=== PATIENT | male | born 1960 | race African-American/Black ===

== ENCOUNTER 2017-04-11 13:21 | Inpatient (IN) | payer MEDICAID ==
[~2017-04-11] VITALS: Ht 172.7 cm; Wt 68.0 kg
[2017-04-11] VITALS (7 sets, daily range): BP systolic 72–104; BP diastolic 45–68
[2017-04-11] MEDS ORDERED: Lidocaine 1% Plain 30 ml INJ ONE (13:30)
[2017-04-11] MEDS ORDERED: Tetanus/Diptheria/Pertussis Vaccine 0.5ml Syr IM ONE (13:30)
[2017-04-11] MEDS ORDERED: Bacitracin Oint UD TOPIC ONE (13:30)
[2017-04-11] MEDS ORDERED: IBUPROFEN600 MG ORAL (14:46)
[2017-04-11] MEDS ORDERED: CEPHALEXIN500 MG ORAL (14:46)
[2017-04-11 17:17] LABS: BASOPHILS % (AUTO) 1.3 % (0.0-2.0); EOSINOPHILS % (AUTO) 0.3 % (0.0-3.0); MEAN CORPUSCULAR HEMOGLOBIN 34.1 PG (27.0-31.0); MEAN CORPUSCULAR HGB CONC 33.3 G/DL (32.0-36.0); MEAN CORPUSCULAR VOLUME 102 FL (80-99); MEAN PLATELET VOLUME 8.6 FL (6.5-10.1); NEUTROPHILS % (AUTO) 70.4 % (45.0-75.0); PLATELET COUNT 287 K/UL (150-450); RED BLOOD COUNT 3.42 M/UL (4.70-6.10); RED CELL DISTRIBUTION WIDTH 13.4 % (11.6-14.8); WHITE BLOOD COUNT 11.4 K/UL (4.8-10.8)
[2017-04-11 17:40] LABS: TROPONIN I < 0.30 ng/mL (<=0.30)
[2017-04-11 17:43] LABS: ALBUMIN/GLOBULIN RATIO 1.8 (1.0-2.7); CALCIUM 8.9 mg/dL (8.6-10.2); GLOMERULAR FILTRATION RATE 41.8 mL/min (>60); POTASSIUM 4.1 mEQ/L (3.4-4.9); TOTAL PROTEIN 6.6 g/dL (6.6-8.7)
[2017-04-11 17:52] LABS: CKMB 3.9 ng/mL (< 6.7)
--- NOTE | 2017-04-11 18:00 | Emergency Room Report ---
History of Present Illness General Chief Complaint: Laceration Source: Patient, EMS Present Illness HPI The patient is a 56-year-old male but in by ambulance for a laceration to the right wrist. The patient states that he was cleaning his house, tripped, and fell into his window. He noticed immediate pain and bleeding the right wrist. And is described as an 8/10 dull ache and does not radiate. Worse with touch. He denies any other symptoms including nausea, vomiting, fever, chills, numbness or tingling, dizziness Allergies: Coded Allergies: No Known Allergies (Unverified , 04/11/17) Patient History Past Medical History: see triage record Pertinent Family History: none Reviewed Nursing Documentation: PMH: Agreed, PSxH: Agreed Nursing Documentation-PMH Hx Cardiac Problems: Yes - CHF Hx Hypertension: Yes - HIV Review of Systems All Other Systems: negative except mentioned in HPI Physical Exam Vital Signs Date Time Temp Pulse Resp B/P Pulse Ox O2 Delivery O2 Flow Rate FiO2 04/11/17 13:18 98.8 80 16 100/70 98 04/11/17 13:51 Room Air Sp02 EP Interpretation: reviewed, normal General Appearance: no apparent distress, alert, GCS 15, non-toxic Head: normocephalic, atraumatic Eyes: bilateral eye PERRL, bilateral eye normal inspection ENT: hearing grossly normal, normal pharynx, no angioedema, normal voice Neck: full range of motion, no bony tend, supple/symm/no masses Respiratory: chest non-tender, lungs clear, normal breath sounds, no wheezing, speaking full sentences Cardiovascular #1: no edema, no JVD, no murmur, no rub Gastrointestinal: normal bowel sounds, non tender, soft, non-distended, no guarding, no rebound Genitourinary: normal inspection, no CVA tenderness Musculoskeletal: back normal, gait/station normal, normal range of motion, tender - R wrist over the laceration Neurologic: alert, oriented x3, responsive, motor strength/tone normal, sensory intact, speech normal Psychiatric: judgement/insight normal, memory normal, mood/affect normal, no suicidal/homicidal ideation Skin: normal color, no rash, warm/dry, well hydrated Lymphatic: no adenopathy Procedures Laceration/Wound Repair Laceration/Wound Repair : Consent: Verbal Wound Location: upper extremity Wound's Depth, Shape: linear Wound Length (cm): 6 Wound Explored: clean Irrigated w/ Saline (ccs): 250 Betadine Prep?: Yes Anesthesia: 1% Lidocaine Volume Anesthetic (ccs): 6 Wound Debrided: minimal Wound Repaired With: sutures Suture Size/Type: 4:0, proline Number of Sutures: 6 Layer Closure?: No Sterile Dressing Applied?: Yes Splint Applied?: No Sling Applied?: No Patient Tolerated: Well Complications: None Medical Decision Making PA Attestation Dr. Lawson is my supervising physician. Patient management was discussed with my supervising physician Diagnostic Impression: Primary Impression: Hypotension Additional Impressions: Laceration Dehydration SULEIMAN (acute kidney injury) Bradycardia ER Course The patient is a 56-year-old male but in by ambulance for a laceration to the right wrist Ddx considered include but not limited to sprain/strain, fracture, contusion PE: vitals WNL. NAD. There is a 6 cm linear laceration of the anterior right wrist. Minimal active bleeding. Full active range of motion of the wrist. Sensation is intact. X-ray of the wrist is unremarkable. No foreign body. The wound was irrigated with normal saline and cleaned with betadine. A 27g needle was used to administer 6 mL of lidocaine without epi for local anasthesia. 6 sutures were placed with 4-0 proline. The wound was well approximated and the patient tolerated the procedure well. The wound was then cleaned and bacitracin was applied. Upon discharge, the patient's vitals have stabilized. He is now tachycardic and hypotensive. He states that he feels fatigued. IV access is established and the patient is given a bolus of fluids. Extensive workup will begin as the patient has a history of heart failure and HIV among others CBC shows leukocytosis and mild anemia. CMP consistent with acute kidney injury with elevated BUN and creatinine. Urinalysis unremarkable. urine drug screen shows cocaine and marijuana Cardiac markers essentially negative EKG and CXR shows no acute findings. The patient will be admitted in stable condition. This case was discussed between Dr. Lawson and admitting physician. The patient agrees with this plan. He has received 2 L of normal saline and vitals have improved. He feels better Laboratory Tests Test 04/11/17 16:50 04/11/17 18:00 White Blood Count 11.4 K/UL (4.8-10.8) H Red Blood Count 3.42 M/UL (4.70-6.10) L Hemoglobin 11.7 G/DL (14.2-18.0) L Hematocrit 35.0 % (42.0-52.0) L Mean Corpuscular Volume 102 FL (80-99) H Mean Corpuscular Hemoglobin 34.1 PG (27.0-31.0) H Mean Corpuscular Hemoglobin Concent 33.3 G/DL (32.0-36.0) Red Cell Distribution Width 13.4 % (11.6-14.8) Platelet Count 287 K/UL (150-450) Mean Platelet Volume 8.6 FL (6.5-10.1) Neutrophils (%) (Auto) 70.4 % (45.0-75.0) Lymphocytes (%) (Auto) 20.0 % (20.0-45.0) Monocytes (%) (Auto) 8.0 % (1.0-10.0) Eosinophils (%) (Auto) 0.3 % (0.0-3.0) Basophils (%) (Auto) 1.3 % (0.0-2.0) Sodium Level 140 mEQ/L (135-145) Potassium Level 4.1 mEQ/L (3.4-4.9) Chloride Level 103 mEQ/L (98-107) Carbon Dioxide Level 19 mEQ/L (20-30) L Anion Gap 18 (5-15) H Blood Urea Nitrogen 17 mg/dL (7-23) Creatinine 2.0 mg/dL (0.7-1.2) H Estimate Glomerular Filtration Rate 41.8 mL/min (>60) Glucose Level 127 mg/dL (74-106) H Calcium Level 8.9 mg/dL (8.6-10.2) Total Bilirubin 0.7 mg/dL (0.0-1.2) Aspartate Amino Transferase (AST) 22 U/L (5-40) Alanine Aminotransferase (ALT) 9 U/L (3-41) Alkaline Phosphatase 68 U/L (40-129) Total Creatine Kinase 115 U/L (38-174) 121 U/L (38-174) Creatine Kinase MB 3.9 ng/mL (< 6.7) Creatine Kinase MB Relative Index 3.3 Troponin I < 0.30 ng/mL (<=0.30) Total Protein 6.6 g/dL (6.6-8.7) Albumin 4.3 g/dL (3.5-5.2) Globulin 2.3 g/dL Albumin/Globulin Ratio 1.8 (1.0-2.7) Urine Color Pale yellow Urine Appearance Clear Urine pH 8 (4.5-8.0) Urine Specific Hector 1.010 (1.005-1.035) Urine Protein 2+ (NEGATIVE) H Urine Glucose (UA) Negative (NEGATIVE) Urine Ketones 1+ (NEGATIVE) H Urine Occult Blood 1+ (NEGATIVE) H Urine Nitrite Negative (NEGATIVE) Urine Bilirubin Negative (NEGATIVE) Urine Urobilinogen Normal MG/DL (0.0-1.0) Urine Leukocyte Esterase Negative (NEGATIVE) Urine RBC 2-4 /HPF (0 - 0) H Urine WBC 0-2 /HPF (0 - 0) Urine Squamous Epithelial Cells None /LPF (NONE/OCC) Urine Bacteria Few /HPF (NONE) Urine Eosinophils None seen Urine Random Sodium 144 mmol/L Urine Potassium Timed 50 mmol/L Lactic Acid Level 2.10 mmol/L (0.66-2.22) Uric Acid 5.2 mg/dL (3.0-7.5) Urine Opiates Screen Negative (NEGATIVE) Urine Barbiturates Screen Negative (NEGATIVE) Phencyclidine (PCP) Screen Negative (NEGATIVE) Urine Amphetamines Screen Negative (NEGATIVE) Urine Benzodiazepines Screen Negative (NEGATIVE) Urine Cocaine Screen Positive (NEGATIVE) H Urine Marijuana (THC) Screen Positive (NEGATIVE) H Lab Results Impression CBC shows leukocytosis and mild anemia. CMP consistent with acute kidney injury with elevated BUN and creatinine. Urinalysis unremarkable. urine drug screen shows cocaine and marijuana Cardiac markers essentially negative Chest X-Ray Diagnostic Results Chest X-Ray Diagnostic Results : Chest X-Ray Ordered: Yes # of Views/Limited/Complete: 1 View Indication: Other - fatigue EP Interpretation: Yes Interpretation: no consolidation, no effusion, no pneumothorax, other - enlarged heart with defib Impression: No acute disease Interpreting ER Provider: Dr. Lulu MICHELLE Scribe Text I am acting as scribe for my supervising physician. My supervising physician's interpretation of the chest xrays are as above Last Vital Signs Date Time Temp Pulse Resp B/P Pulse Ox O2 Delivery O2 Flow Rate FiO2 04/11/17 17:07 54 97/59 7/3/17 17:03 98.1 22 98 Room Air Status: improved Disposition: ADMITTED INPATIENT Condition: Stable Scripts Cephalexin* (KEFLEX*) 500 Mg Capsule 500 MG ORAL EVERY 6 HOURS, #28 CAP Prov: LUANN FOX.AFritz 04/11/17 Ibuprofen* (MOTRIN*) 600 Mg Tablet 600 MG ORAL Q8H Y for For Pain, #30 TAB 0 Refills Prov: LUANN FOX 04/11/17 Referrals: [facility]ERR[facility] (PCP) Patient Instructions: Laceration Care, Adult Additional Instructions: I discussed my findings with the patient. All questions and concerns have been answered. Treatment and medication compliance have been addressed. I advised the patient that they need to follow up with PMD in 7 days for wound check and suture removal. If you are unable to see PMD, return to the ED in 7 days. Return to ED if pain remains or worsens, you notice discharge from the wound, the wound continues to bleed, the suture/s fall out, you notice a fever or chills, or for any reason. Patient is advised to keep the wound clean and apply an antibacterial ointment. Patient verbalized understanding of discharge instructions. LUANN FOX Apr 11, 2017 18:00
[2017-04-11 18:51] LABS: APPEARANCE,URINE CLEAR; KETONES,URINE 1+ (NEGATIVE); LEUKOCYTE ESTERASE ,URINE NEGATIVE (NEGATIVE); NITRITE,URINE NEGATIVE (NEGATIVE); PH,URINE 8 (4.5-8.0); PROTEIN,URINE 2+ (NEGATIVE); UROBILINOGEN,URINE NORMAL MG/DL (0.0-1.0)
[2017-04-11] MEDS ORDERED: Mylanta II UD 30ml ORAL PRN (19:00)
[2017-04-11] MEDS ORDERED: LORazepam Inj 2mg/ml 1ml IV PRN (19:00)
[2017-04-11 19:05] LABS: BACTERIA,URINE FEW /HPF; WBC,URINE 0-2 /HPF (0 - 0)
[2017-04-11 19:11] LABS: URIC ACID 5.2 mg/dL (3.0-7.5)
[2017-04-11 19:16] LABS: REFLEX LACTIC ACID YES OR NO YES
[2017-04-11] MEDS: D5NS 1,000 ML IV SCH (19:17)
[2017-04-11] MEDS: Morphine Sulfate 2mg/ml Inj IVP PRN (20:24)
[2017-04-11] MEDS ORDERED: Miralax 17gm pkt ORAL PRN (21:00)
[2017-04-11] MEDS ORDERED: Zolpidem 5mg tab ORAL PRN (21:00)
[2017-04-12 00:15] VITALS: BP 90/54
[2017-04-12] MEDS: Morphine Sulfate 2mg/ml Inj IVP PRN ×2 (02:26→08:40)
[2017-04-12 04:01] VITALS: BP 99/51
[2017-04-12] MEDS: D5NS 1,000 ML IV SCH ×2 (05:49→15:12)
--- NOTE | 2017-04-12 06:46 | Diagnostic Imaging Report ---
Indications: Right wrist trauma, pain Technique: 3 views right wrist. Findings: Comparison: None No fracture, dislocation, joint space widening , surrounding soft tissue swelling/foreign body/gas, or other acute changes are identified. IMPRESSION: No evidence of acute injury to the right wrist.
--- NOTE | 2017-04-12 07:40 | Diagnostic Imaging Report ---
Indication: Shortness of breath, fatigue Technique: Single AP view of the chest. Findings: Comparison: None. Silhouette enlarged. Left chest wall pacemaker with single right ventricular lead in place. The bones and extra pulmonary soft tissues, remainder of the cardiomediastinal silhouette, pulmonary vasculature and parenchyma, and pleural surfaces are unremarkable. IMPRESSION: No evidence of acute cardiopulmonary disease Cardiomegaly with pacemaker.
[2017-04-12 08:00] VITALS: BP 117/71
[2017-04-12 08:58] LABS: BASOPHILS % (AUTO) 0.8 % (0.0-2.0); EOSINOPHILS % (AUTO) 1.1 % (0.0-3.0); LYMPHOCYTES % (AUTO) 23.5 % (20.0-45.0); MEAN CORPUSCULAR HEMOGLOBIN 34.9 PG (27.0-31.0); MEAN CORPUSCULAR HGB CONC 33.7 G/DL (32.0-36.0); MEAN CORPUSCULAR VOLUME 104 FL (80-99); MEAN PLATELET VOLUME 12.7 FL (6.5-10.1); MONOCYTES % (AUTO) 8.7 % (1.0-10.0); NEUTROPHILS % (AUTO) 65.9 % (45.0-75.0); PLATELET COUNT 200 K/UL (150-450); RED BLOOD COUNT 2.29 M/UL (4.70-6.10); RED CELL DISTRIBUTION WIDTH 12.9 % (11.6-14.8); WHITE BLOOD COUNT 8.5 K/UL (4.8-10.8)
[2017-04-12] MEDS ORDERED: Meningococcal Polysacc Vaccine Inj SUBQ ONE (09:00)
[2017-04-12 09:11] LABS: ALANINE AMINOTRANSFERASE 7 U/L (3-41); ALBUMIN/GLOBULIN RATIO 1.7 (1.0-2.7); ANION GAP 9 (5-15); ASPARTATE AMINO TRANSFERASE 17 U/L (5-40); CALCIUM 7.3 mg/dL (8.6-10.2); CARBON DIOXIDE 19 mEQ/L (20-30); CHLORIDE 111 mEQ/L (98-107); CHOLESTEROL 119 mg/dL (< 200); CREATININE 1.5 mg/dL (0.7-1.2); GLOMERULAR FILTRATION RATE 58.3 mL/min (>60); HEMOLYSIS 6; LDL CHOLESTEROL (CALC.) 70 mg/dL (60-99); SODIUM 139 mEQ/L (135-145); TOTAL PROTEIN 4.9 g/dL (6.6-8.7)
[2017-04-12 09:16] LABS: THYROID STIMULATING HORMONE 0.763 uIU/mL (0.300-4.500)
--- NOTE | 2017-04-12 09:19 | History and Physical ---
History of Present Illness General Date patient seen: Apr 12, 2017 Reason for Hospitalization: Laceration Present Illness HPI 56-year-old male with hx of ICD, HIV brought in by ambulance for a laceration to the right wrist. The patient states that he was cleaning his house, tripped , and fell into his window. He noticed immediate pain and bleeding the right wrist. His laceration was sutured in the ER, then he was noticed to be hypotensive and anemic. Therefore he is admitted to Telemetry for further work up. Allergies: Coded Allergies: No Known Allergies (Unverified , 04/11/17) Medication History Scheduled Cephalexin* (Keflex*), 500 MG ORAL EVERY 6 HOURS Scheduled PRN Ibuprofen* (Motrin*), 600 MG ORAL Q8H PRN for For Pain Patient History Healthcare decision maker N Resuscitation status Full Code Advanced Directive on File Past Medical/Surgical History Past Medical/Surgical History: (1) HIV disease (2) ICD (implantable cardioverter-defibrillator) in place Review of Systems All Other Systems: negative except mentioned in HPI Physical Exam General Appearance: WD/WN Lines, tubes and drains: peripheral HEENT: normocephalic, atraumatic Neck: non-tender, supple Respiratory/Chest: chest wall non-tender, lungs clear Cardiovascular/Chest: normal peripheral pulses, normal rate, regular rhythm Abdomen: normal bowel sounds Genitourinary/Rectal: normal genital exam Extremities: normal range of motion Last 24 Hour Vital Signs Date Time Temp Pulse Resp B/P Pulse Ox O2 Delivery O2 Flow Rate FiO2 04/12/17 04:01 98.7 71 20 99/51 99 Room Air 04/12/17 04:00 78 04/12/17 00:15 98.2 88 21 90/54 95 Room Air 04/12/17 00:00 64 04/11/17 20:00 98.4 82 18 93/66 96 Room Air 04/11/17 19:02 98/67 04/11/17 18:37 97.8 58 16 102/62 98 Room Air 04/11/17 17:07 54 97/59 04/11/17 17:03 98.1 54 22 94/56 98 Room Air 04/11/17 16:00 49 16 72/45 98 Room Air 04/11/17 15:00 80 16 110/65 Room Air 04/11/17 15:00 98.6 80 16 100/65 99 Room Air 04/11/17 13:51 98.7 84 15 104/68 98 Room Air 04/11/17 13:18 98.8 80 16 100/70 98 Intake and Output 04/11/17 04/12/17 19:00 07:00 Intake Total 1570 ml Output Total 300 ml 300 ml Balance -300 ml 1270 ml Intake Oral 480 ml IV Total 1090 ml Output Urine Total 300 ml 300 ml Laboratory Tests Test 04/11/17 16:50 04/11/17 18:00 04/12/17 08:20 White Blood Count 11.4 K/UL (4.8-10.8) H 8.5 K/UL (4.8-10.8) Red Blood Count 3.42 M/UL (4.70-6.10) L 2.29 M/UL (4.70-6.10) L Hemoglobin 11.7 G/DL (14.2-18.0) L 8.0 G/DL (14.2-18.0) #L Hematocrit 35.0 % (42.0-52.0) L 23.8 % (42.0-52.0) #L Mean Corpuscular Volume 102 FL (80-99) H 104 FL (80-99) H Mean Corpuscular Hemoglobin 34.1 PG (27.0-31.0) H 34.9 PG (27.0-31.0) H Mean Corpuscular Hemoglobin Concent 33.3 G/DL (32.0-36.0) 33.7 G/DL (32.0-36.0) Red Cell Distribution Width 13.4 % (11.6-14.8) 12.9 % (11.6-14.8) Platelet Count 287 K/UL (150-450) 200 K/UL (150-450) Mean Platelet Volume 8.6 FL (6.5-10.1) 12.7 FL (6.5-10.1) H Neutrophils (%) (Auto) 70.4 % (45.0-75.0) 65.9 % (45.0-75.0) Lymphocytes (%) (Auto) 20.0 % (20.0-45.0) 23.5 % (20.0-45.0) Monocytes (%) (Auto) 8.0 % (1.0-10.0) 8.7 % (1.0-10.0) Eosinophils (%) (Auto) 0.3 % (0.0-3.0) 1.1 % (0.0-3.0) Basophils (%) (Auto) 1.3 % (0.0-2.0) 0.8 % (0.0-2.0) Sodium Level 140 mEQ/L (135-145) 139 mEQ/L (135-145) Potassium Level 4.1 mEQ/L (3.4-4.9) 4.0 mEQ/L (3.4-4.9) Chloride Level 103 mEQ/L (98-107) 111 mEQ/L (98-107) H Carbon Dioxide Level 19 mEQ/L (20-30) L 19 mEQ/L (20-30) L Anion Gap 18 (5-15) H 9 (5-15) Blood Urea Nitrogen 17 mg/dL (7-23) 14 mg/dL (7-23) Creatinine 2.0 mg/dL (0.7-1.2) H 1.5 mg/dL (0.7-1.2) H Estimat Glomerular Filtration Rate 41.8 mL/min (>60) 58.3 mL/min (>60) Glucose Level 127 mg/dL (74-106) H 118 mg/dL (74-106) H Calcium Level 8.9 mg/dL (8.6-10.2) 7.3 mg/dL (8.6-10.2) L Total Bilirubin 0.7 mg/dL (0.0-1.2) < 0.2 mg/dL (0.0-1.2) Aspartate Amino Transf (AST/SGOT) 22 U/L (5-40) 17 U/L (5-40) Alanine Aminotransferase (ALT/SGPT) 9 U/L (3-41) 7 U/L (3-41) Alkaline Phosphatase 68 U/L (40-129) 45 U/L (40-129) Total Creatine Kinase 115 U/L (38-174) 121 U/L (38-174) Creatine Kinase MB 3.9 ng/mL (< 6.7) Creatine Kinase MB Relative Index 3.3 Troponin I < 0.30 ng/mL (<=0.30) Total Protein 6.6 g/dL (6.6-8.7) 4.9 g/dL (6.6-8.7) L Albumin 4.3 g/dL (3.5-5.2) 3.1 g/dL (3.5-5.2) L Globulin 2.3 g/dL 1.8 g/dL Albumin/Globulin Ratio 1.8 (1.0-2.7) 1.7 (1.0-2.7) Urine Color Pale yellow Urine Appearance Clear Urine pH 8 (4.5-8.0) Urine Specific Bradley 1.010 (1.005-1.035) Urine Protein 2+ (NEGATIVE) H Urine Glucose (UA) Negative (NEGATIVE) Urine Ketones 1+ (NEGATIVE) H Urine Occult Blood 1+ (NEGATIVE) H Urine Nitrite Negative (NEGATIVE) Urine Bilirubin Negative (NEGATIVE) Urine Urobilinogen Normal MG/DL (0.0-1.0) Urine Leukocyte Esterase Negative (NEGATIVE) Urine RBC 2-4 /HPF (0 - 0) H Urine WBC 0-2 /HPF (0 - 0) Urine Squamous Epithelial Cells None /LPF (NONE/OCC) Urine Bacteria Few /HPF (NONE) Urine Eosinophils None seen Urine Random Sodium 144 mmol/L Urine Potassium Timed 50 mmol/L Lactic Acid Level 2.10 mmol/L (0.66-2.22) Uric Acid 5.2 mg/dL (3.0-7.5) Urine Opiates Screen Negative (NEGATIVE) Urine Barbiturates Screen Negative (NEGATIVE) Phencyclidine (PCP) Screen Negative (NEGATIVE) Urine Amphetamines Screen Negative (NEGATIVE) Urine Benzodiazepines Screen Negative (NEGATIVE) Urine Cocaine Screen Positive (NEGATIVE) H Urine Marijuana (THC) Screen Positive (NEGATIVE) H Triglycerides Level 47 mg/dL (< 150) Cholesterol Level 119 mg/dL (< 200) LDL Cholesterol 70 mg/dL (60-99) HDL Cholesterol 40 mg/dL (> 60) Cholesterol/HDL Ratio 3.0 (3.3-4.4) L Thyroid Stimulating Hormone (TSH) Pending Height (Feet): 5 Height (Inches): 8.00 Weight (Pounds): 150 Medications Current Medications Medications (Trade) Dose Ordered Sig/Ifeanyi Route PRN Reason Start Time Stop Time Status Last Admin Dose Admin Acetaminophen (Tylenol) 650 mg Q4H PRN ORAL T>100.5 04/11/17 18:45 05/11/17 18:44 Al Hydroxide/Mg Hydroxide (Mylanta II) 30 ml Q6H PRN ORAL dyspepsia 04/11/17 19:00 05/11/17 18:59 Dextrose STAT PRN IV Hypoglycemia 04/11/17 19:00 05/11/17 18:59 Dextrose/Sodium Chloride (D5ns) 1,000 ml @ 100 mls/hr Q10H IV 04/11/17 19:00 05/11/17 18:59 04/12/17 05:49 Lorazepam (Ativan 2mg/ml 1ml) 0.5 mg Q4H PRN IV For Anxiety 04/11/17 19:00 04/18/17 18:59 Morphine Sulfate (Morphine Sulfate) 1 mg Q4H PRN IVP PAIN 4-10 04/11/17 18:45 04/18/17 18:44 04/12/17 08:40 Ondansetron HCl (Zofran) 4 mg Q6H PRN IVP Nausea & Vomiting 04/11/17 19:00 05/11/17 18:59 Polyethylene Glycol (Miralax) 17 gm HSPRN PRN ORAL Constipation 04/11/17 21:00 05/11/17 20:59 Zolpidem Tartrate (Ambien) 5 mg HSPRN PRN ORAL Insomnia 04/11/17 21:00 05/11/17 20:59 Assessment/Plan Problem List: (1) Hypotension ICD Codes: I95.9 - Hypotension, unspecified SNOMED: 90614262 (2) Laceration SNOMED: 901237890 (3) SULEIMAN (acute kidney injury) ICD Codes: N17.9 - Acute kidney failure, unspecified SNOMED: 25055552 (4) HIV disease ICD Codes: B20 - Human immunodeficiency virus [HIV] disease SNOMED: 07355256 (5) ICD (implantable cardioverter-defibrillator) in place ICD Codes: Z95.810 - Presence of automatic (implantable) cardiac defibrillator SNOMED: 047905032, 012005684 Assessment/Plan cardio w/u anemia w/u stool for OB echocardiogram wound care JOAQUIN JACKSON Apr 12, 2017 09:19
--- NOTE | 2017-04-12 11:20 | Cardiology Progress Note ---
Assessment/Plan Assessment/Plan non syncopal fall vasovagal syncope wrist injury and bleeding renal insuf cm icd hs hypotension hiv anemia [id number] vitasl ivf i positive he had sig drop in h/h if accurate ekg abn no sx to suggest acs the chronicity of abn in ekg unknown will have icd interrogation repeat cbc n am Objective Last 24 Hour Vital Signs Date Time Temp Pulse Resp B/P Pulse Ox O2 Delivery O2 Flow Rate FiO2 04/12/17 08:00 97.9 68 18 117/71 100 Room Air 04/12/17 08:00 62 04/12/17 04:01 98.7 71 20 99/51 99 Room Air 04/12/17 04:00 78 04/12/17 00:15 98.2 88 21 90/54 95 Room Air 04/12/17 00:00 64 04/11/17 20:00 98.4 82 18 93/66 96 Room Air 04/11/17 19:02 98/67 04/11/17 18:37 97.8 58 16 102/62 98 Room Air 04/11/17 17:07 54 97/59 04/11/17 17:03 98.1 54 22 94/56 98 Room Air 04/11/17 16:00 49 16 72/45 98 Room Air 04/11/17 15:00 80 16 110/65 Room Air 04/11/17 15:00 98.6 80 16 100/65 99 Room Air 04/11/17 13:51 98.7 84 15 104/68 98 Room Air 04/11/17 13:18 98.8 80 16 100/70 98 Intake and Output 04/11/17 04/12/17 19:00 07:00 Intake Total 1570 ml Output Total 300 ml 300 ml Balance -300 ml 1270 ml Intake Oral 480 ml IV Total 1090 ml Output Urine Total 300 ml 300 ml Laboratory Tests Test 04/11/17 16:50 04/11/17 18:00 04/12/17 08:20 White Blood Count 11.4 K/UL (4.8-10.8) H 8.5 K/UL (4.8-10.8) Red Blood Count 3.42 M/UL (4.70-6.10) L 2.29 M/UL (4.70-6.10) L Hemoglobin 11.7 G/DL (14.2-18.0) L 8.0 G/DL (14.2-18.0) #L Hematocrit 35.0 % (42.0-52.0) L 23.8 % (42.0-52.0) #L Mean Corpuscular Volume 102 FL (80-99) H 104 FL (80-99) H Mean Corpuscular Hemoglobin 34.1 PG (27.0-31.0) H 34.9 PG (27.0-31.0) H Mean Corpuscular Hemoglobin Concent 33.3 G/DL (32.0-36.0) 33.7 G/DL (32.0-36.0) Red Cell Distribution Width 13.4 % (11.6-14.8) 12.9 % (11.6-14.8) Platelet Count 287 K/UL (150-450) 200 K/UL (150-450) Mean Platelet Volume 8.6 FL (6.5-10.1) 12.7 FL (6.5-10.1) H Neutrophils (%) (Auto) 70.4 % (45.0-75.0) 65.9 % (45.0-75.0) Lymphocytes (%) (Auto) 20.0 % (20.0-45.0) 23.5 % (20.0-45.0) Monocytes (%) (Auto) 8.0 % (1.0-10.0) 8.7 % (1.0-10.0) Eosinophils (%) (Auto) 0.3 % (0.0-3.0) 1.1 % (0.0-3.0) Basophils (%) (Auto) 1.3 % (0.0-2.0) 0.8 % (0.0-2.0) Sodium Level 140 mEQ/L (135-145) 139 mEQ/L (135-145) Potassium Level 4.1 mEQ/L (3.4-4.9) 4.0 mEQ/L (3.4-4.9) Chloride Level 103 mEQ/L (98-107) 111 mEQ/L (98-107) H Carbon Dioxide Level 19 mEQ/L (20-30) L 19 mEQ/L (20-30) L Anion Gap 18 (5-15) H 9 (5-15) Blood Urea Nitrogen 17 mg/dL (7-23) 14 mg/dL (7-23) Creatinine 2.0 mg/dL (0.7-1.2) H 1.5 mg/dL (0.7-1.2) H Estimat Glomerular Filtration Rate 41.8 mL/min (>60) 58.3 mL/min (>60) Glucose Level 127 mg/dL (74-106) H 118 mg/dL (74-106) H Calcium Level 8.9 mg/dL (8.6-10.2) 7.3 mg/dL (8.6-10.2) L Total Bilirubin 0.7 mg/dL (0.0-1.2) < 0.2 mg/dL (0.0-1.2) Aspartate Amino Transf (AST/SGOT) 22 U/L (5-40) 17 U/L (5-40) Alanine Aminotransferase (ALT/SGPT) 9 U/L (3-41) 7 U/L (3-41) Alkaline Phosphatase 68 U/L (40-129) 45 U/L (40-129) Total Creatine Kinase 115 U/L (38-174) 121 U/L (38-174) Creatine Kinase MB 3.9 ng/mL (< 6.7) Creatine Kinase MB Relative Index 3.3 Troponin I < 0.30 ng/mL (<=0.30) Total Protein 6.6 g/dL (6.6-8.7) 4.9 g/dL (6.6-8.7) L Albumin 4.3 g/dL (3.5-5.2) 3.1 g/dL (3.5-5.2) L Globulin 2.3 g/dL 1.8 g/dL Albumin/Globulin Ratio 1.8 (1.0-2.7) 1.7 (1.0-2.7) Urine Color Pale yellow Urine Appearance Clear Urine pH 8 (4.5-8.0) Urine Specific [place]ie 1.010 (1.005-1.035) Urine Protein 2+ (NEGATIVE) H Urine Glucose (UA) Negative (NEGATIVE) Urine Ketones 1+ (NEGATIVE) H Urine Occult Blood 1+ (NEGATIVE) H Urine Nitrite Negative (NEGATIVE) Urine Bilirubin Negative (NEGATIVE) Urine Urobilinogen Normal MG/DL (0.0-1.0) Urine Leukocyte Esterase Negative (NEGATIVE) Urine RBC 2-4 /HPF (0 - 0) H Urine WBC 0-2 /HPF (0 - 0) Urine Squamous Epithelial Cells None /LPF (NONE/OCC) Urine Bacteria Few /HPF (NONE) Urine Eosinophils None seen Urine Random Sodium 144 mmol/L Urine Potassium Timed 50 mmol/L Lactic Acid Level 2.10 mmol/L (0.66-2.22) Uric Acid 5.2 mg/dL (3.0-7.5) Urine Opiates Screen Negative (NEGATIVE) Urine Barbiturates Screen Negative (NEGATIVE) Phencyclidine (PCP) Screen Negative (NEGATIVE) Urine Amphetamines Screen Negative (NEGATIVE) Urine Benzodiazepines Screen Negative (NEGATIVE) Urine Cocaine Screen Positive (NEGATIVE) H Urine Marijuana (THC) Screen Positive (NEGATIVE) H Triglycerides Level 47 mg/dL (< 150) Cholesterol Level 119 mg/dL (< 200) LDL Cholesterol 70 mg/dL (60-99) HDL Cholesterol 40 mg/dL (> 60) Cholesterol/HDL Ratio 3.0 (3.3-4.4) L Thyroid Stimulating Hormone (TSH) 0.763 uIU/mL (0.300-4.500) VAL GUERRA Apr 12, 2017 11:20
[2017-04-12 12:00] VITALS: BP 116/62
--- NOTE | 2017-04-12 14:12 | Consultation ---
Consult Note Consult Note ID DIC # [id number] KAHLIL CRUZ M.D. Apr 12, 2017 14:12
--- NOTE | 2017-04-12 15:15 | Consultation ---
DATE OF CONSULTATION: 04/12/2017 CARDIOLOGY CONSULTATION CONSULTING PHYSICIAN: Cliff Casper M.D. REFERRING PHYSICIAN: Lolis Villar M.D. REASON FOR CONSULT: Hypotension and syncope. HISTORY OF PRESENT ILLNESS: This is a 56-year-old gentleman with history of possible HIV, cardiomyopathy, history intracardiac defibrillator placement. The patient was cleaning window apparently fell through injured hand and did not really lose consciousness at that time, went downstairs to get help and the blood that was pumping out and he passed out at the site according to him, he really did not have any chest pain or pressure or shortness of breath. He does not have any PND. He uses two pillows to sleep basically for comfort. Unfortunate department sales manager run sheet is not available. He has two pillow usage, but basically for comfort. No PND, no orthopnea, occasional dizziness or lightheadedness. No palpitation, no pain, pressure, tightness, or heaviness in his chest. PAST MEDICAL HISTORY: Negative for diabetes, positive high blood pressure. No heart attack. No cancer. No stroke. No hepatitis or tuberculosis. No asthma or emphysema. No ulcers. No kidney problems or liver problems or thyroid problems, anemia or arthritis. He does have HIV. 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 His defibrillator placed here at this hospital back in 2006, but has been upgraded according to himself. ALLERGIES: The patient is not allergic to any medication. SOCIAL HISTORY: Never smoked. Does occasional drink soft alcoholic beverages. No drug use. REVIEW OF SYSTEMS: Gastrointestinal: Negative. Genitourinary: Negative. Pulmonary: Negative. Constitutional: Negative. Neurologic: Negative. PHYSICAL EXAMINATION: GENERAL: Shows to be middle-aged gentleman known respiratory distress. VITAL SIGNS: His blood pressure is anywhere between 72/45 to 117/71, respirations are 18, pulse rate in the 60s to 80s. NECK: Supple. No jugular venous distention. No abdominojugular reflux noted. LUNGS: Clear to auscultation and percussion. CARDIAC: S1 is normal. S2 is normal. Regular rate and rhythm. No heaves. No thrills. No gallops noted. ABDOMEN: Soft and nontender. Positive bowel sounds. EXTREMITIES: There is no clubbing, cyanosis, nor is there any edema. NEUROLOGIC: He is awake, alert, responsive, in no apparent distress. LABORATORY AND DIAGNOSTIC DATA: Laboratory values revealed a white count of 8.5, hemoglobin 8 down from 11.7 at time of admission, his white count was down from 11.4 at time of admission, his platelets were 200,000. His labs, sodium 139, potassium 4.6, chloride 111, bicarbonate of 19, BUN of 14, creatinine of 1.5, his creatinine was 2 at the time of his admission and his glucose of 118 and lactic acid 2.0. His troponin was less than 0.03. ProBNP was not performed. LDL of 72, total cholesterol 119, and TSH is 0.743. His urinalysis shows 2-4 RBCs, 0-2 WBCs. His toxicology screen positive for cocaine and marijuana, although he actually tells me he has not used cocaine since the 70s. ASSESSMENT AND PLAN: 1. Nonsyncopal fall, numbness wrist injury with bleeding vasovagal syncope likely. 2. Hypotension of questionable chronicity. 3. Renal insufficiency. 4. Human immunodeficiency virus. 5. Cardiomyopathy. Dr. Villar, this patient was seen in cardiac consultation. The patient's electrocardiogram shows what appears to be sinus bradycardia at a rate of 57, with T-wave inversions in V4, V5 as well as V6, chronicity unknown. He has had an echocardiogram report of which shows evidence of cardiomyopathy with ejection fraction of estimated between 35% to 40%. Global hypokinesis has been documented with posterior inferior akinesis, no significant valvular regurgitation. His telemetry data so far indicates sinus rhythm. He endorses no evidence of any chest pain or pressure or discomfort of any kind. He does not have any overt evidence of congestive heart failure on examination. We will have his ICD interrogated. His cardiac enzymes will be repeated as a matter of a routine, although he again does not have the signs and symptoms of a coronary syndrome at this time. Cliff Casper M.D. DR: Isak JOB#: [id number] CC:
[2017-04-12 16:00] VITALS: BP 117/74
[2017-04-12 17:01] LABS: MEAN CORPUSCULAR HEMOGLOBIN 34.9 PG (27.0-31.0); MEAN CORPUSCULAR HGB CONC 34.7 G/DL (32.0-36.0); MEAN CORPUSCULAR VOLUME 101 FL (80-99); MEAN PLATELET VOLUME 9.9 FL (6.5-10.1); PLATELET COUNT 187 K/UL (150-450); WHITE BLOOD COUNT 8.9 K/UL (4.8-10.8)
[2017-04-12 17:24] LABS: LACTATE DEHYDROGENASE 227 U/L (135-230)
[2017-04-12 17:25] LABS: HEMOLYSIS 1; IRON 36 ug/dL (59-158); TOTAL IRON BINDING CAPACITY 229 ug/dL (250-400)
[2017-04-12 17:35] LABS: FERRITIN 65 ng/mL (10-230)
[2017-04-12 17:45] LABS: RETICULOCYTE COUNT 1.8 % (0.0-2.0)
--- NOTE | 2017-04-12 18:00 | Consultation ---
DATE OF CONSULTATION: 04/12/2017 INFECTIOUS DISEASE CONSULTATION CONSULTING PHYSICIAN: Ash Barth M.D REFERRING PHYSICIAN: Lolis Villar M.D. REASON FOR CONSULTATION: Evaluation of the patient for HIV. HISTORY OF PRESENT ILLNESS: The patient is a 56-year-old male with past medical history significant for HIV, according to him controlled on his HIV medication, came to the hospital after the patient had laceration of the right arm due to the broken glasses of window while the patient was cleaning his house. Infectious Disease consultation has been requested for further evaluation of the patient's HIV status and antiretroviral. PAST MEDICAL HISTORY: 1. HIV. According to the patient, CD4 count is over 500 and viral load undetectable. 2. CHF. 3. Status post AICD. 4. Hypertension. ALLERGIES: No known drug allergies. SOCIAL HISTORY: Significant for smoking marijuana. No alcohol or other drug abuse. FAMILY HISTORY: Noncontributory. REVIEW OF SYSTEMS: A 10-point review was done and except what is mentioned above has been negative. MEDICATIONS: Currently off of antibiotic. At home, the patient is taking Atripla. PHYSICAL EXAMINATION: VITAL SIGNS: Temperature 97.2, blood pressure 116/72, pulse 83, and respiratory rate 18. HEENT: No pale conjunctivae. No icterus. NECK: No lymphadenopathy. CHEST: Clear. HEART: S1 and S2. ABDOMEN: Soft. EXTREMITIES: The patient has a laceration over the right arm, covered by dressing. NEUROLOGIC: Awake and alert. LABORATORY AND DIAGNOSTIC DATA: White blood cell count on admission 11, on repeat 8.5; hemoglobin is 8, dropped from 11.7; and platelets 200,000. UA unremarkable. BUN 14, creatinine 1.5. ALT, AST, and alkaline phosphatase are unremarkable. Chest x-ray unremarkable. Wrist x-ray, no evidence of fracture. ASSESSMENT: The patient is a 56-year-old male with multiple medical problems as mentioned above who has, 1. Human immunodeficiency virus, controlled on his human immunodeficiency virus medication. 2. Right wrist laceration, status post sutures. 3. Anemia. PLAN: 1. We will monitor the patient off of antibiotics. 2. We will start the patient on his HIV medication, Atripla one tablet every night. 3. Monitor CBC. 4. Monitor BMP. 5. Based on the patient's clinical course and labs, we will do further recommendation. Thank you, Dr. Villar, for allowing me to participate in the care of this patient. I will follow the patient with you during this hospitalization. Ash Barth M.D. DR: JENNIFER JOB#: [id number] CC:
[2017-04-12 18:02] LABS: BAND NEUTROPHILS % (MANUAL) 1 % (0-8); BASOPHILS % (MANUAL) 0 % (0-2); EOSINOPHILS % (MANUAL) 0 % (0-3); LYMPHOCYTES % (MANUAL) 33 % (20-45); NEUTROPHILS % (MANUAL) 61 % (45-75); NUCLEATED RED BLOOD CELLS 1 /100 WBC; PLATELET ESTIMATE ADEQUATE; TOTAL CELLS COUNTED 100
[2017-04-12 18:03] LABS: ANISOCYTOSIS 1+; OVALOCYTES 1+
[2017-04-12 18:04] LABS: PLATELET MORPHOLOGY NORMAL; SPHEROCYTES OCCASIONAL
[2017-04-12 18:05] LABS: PATH BLOOD SMEAR/OMC SENT TO PATHOLOGIST; POLYCHROMASIA 1+
--- NOTE | 2017-04-12 19:30 | Consultation ---
DATE OF CONSULTATION: 04/12/2017 CONSULTING PHYSICIAN: Suman Valentin M.D. REQUESTING PHYSICIAN: Lolis Villar M.D. REASON FOR CONSULTATION: Evaluation of anemia and macrocytosis. HISTORY OF PRESENT ILLNESS: Dear Dr. Lolis Villar, The patient is a pleasant 56-year-old male who lives in the [place] with a past medical history significant for ICD, history of HIV, at this time presented from home, was brought in by ambulance with laceration of the right wrist. He had been cleaning his house. He tripped and he fell onto his window. He noted immediate pain and bleeding from the right wrist area. It was sutured in the ER. He was noted to be hypotensive as well as anemic. Initial hemoglobin was 11 and upon redraw after fluids were administered it was 8. Hematology Service was consulted for further evaluation and treatment. PAST MEDICAL HISTORY: HIV and anemia. PAST SURGICAL HISTORY: ICD placement. ALLERGIES: No known drug allergies. MEDICATIONS: Keppra. FAMILY HISTORY: Noncontributory. REVIEW OF SYSTEMS: Constitutional: No fever, no chills, or night sweats. Skin: No rashes, lumps, or itching. HEENT: No headache, hearing, or vision changes. Breasts: No lumps, pain, or discharge. Pulmonary: No cough, sputum, or shortness of breath. Cardiovascular: No chest pain, tightness, or palpitations. Gastrointestinal: No nausea, vomiting, or diarrhea. Genitourinary: No dysuria, frequency, or urgency. Musculoskeletal: No joint swelling, muscle pain, or trauma. PHYSICAL EXAMINATION: GENERAL: The patient is not in acute distress. VITAL SIGNS: Temperature 97 degrees Fahrenheit, pulse of 51, respiratory rate 12, and blood pressure 100/51. PULMONARY: Decreased breath sounds. CARDIOVASCULAR: Regular rate. No S3 or S4. ABDOMEN: Soft, nontender and nondistended. EXTREMITIES: A 1+ edema. LABORATORY DATA: WBC 11.4, hemoglobin 11.7, hematocrit 35, and platelet count 287,000 ASSESSMENT AND RECOMMENDATION: 1. Anemia secondary to hemodilution. Hemoglobin and hematocrit have dropped approximately 3 points. 2. Anemia secondary to human immunodeficiency virus and acquired immunodeficiency syndrome. 3. Wrist fracture secondary to fall and trauma from window. 4. Human immunodeficiency virus and acquired immunodeficiency syndrome. 5. 6. Laceration history 7. Implantable cardioverter defibrillator placement. 8. Acute kidney injury. 9. Macrocytosis likely secondary to human immunodeficiency virus and acquired immunodeficiency syndrome, ultrasound of the abdomen. 10. Positive cocaine use as well as marijuana use. 11. Polysubstance abuse. 12. I have ordered DIC panel. 13. Discussed with staff. 14. I appreciate consultation from Dr. Lolis Villar. Suman Valentin M.D. DR: OBEI JOB#: [id number] CC:
[2017-04-12 20:00] VITALS: BP 120/77
[2017-04-12] MEDS ORDERED: Efavirenz 200mg cap ORAL SCH (21:00)
[2017-04-13] VITALS: BP 123/71
[2017-04-13] MEDS: D5NS 1,000 ML IV SCH ×2 (00:23→12:16)
[2017-04-13] MEDS: Morphine Sulfate 2mg/ml Inj IVP PRN (02:19)
[2017-04-13 04:00] VITALS: BP 120/75
[2017-04-13 08:13] LABS: TROPONIN I < 0.30 ng/mL (<=0.30)
[2017-04-13 08:36] VITALS: BP 117/77
[2017-04-13 09:01] LABS: EOSINOPHILS % (AUTO) 2.4 % (0.0-3.0); LYMPHOCYTES % (AUTO) 28.8 % (20.0-45.0); MEAN CORPUSCULAR HEMOGLOBIN 34.3 PG (27.0-31.0); MEAN CORPUSCULAR HGB CONC 33.2 G/DL (32.0-36.0); MEAN CORPUSCULAR VOLUME 104 FL (80-99); MEAN PLATELET VOLUME 9.5 FL (6.5-10.1); MONOCYTES % (AUTO) 9.6 % (1.0-10.0); NEUTROPHILS % (AUTO) 58.2 % (45.0-75.0); PLATELET COUNT 198 K/UL (150-450); RED BLOOD COUNT 2.62 M/UL (4.70-6.10); RED CELL DISTRIBUTION WIDTH 13.5 % (11.6-14.8); WHITE BLOOD COUNT 8.8 K/UL (4.8-10.8)
[2017-04-13 11:48] VITALS: BP 130/85
--- NOTE | 2017-04-13 12:43 | Pulmonology Progress Note ---
Assessment/Plan Problems: (1) Hypotension (2) Laceration (3) SULEIMAN (acute kidney injury) (4) HIV disease (5) ICD (implantable cardioverter-defibrillator) in place Assessment/Plan s/p prbc times one bp and heart rate have been stable cardio note appreciated, dc home with f/u with primary ICD was interrogated. Subjective Constitutional: Reports: no symptoms HEENT: Repors: no symptoms Respiratory: Reports: no symptoms Allergies: Coded Allergies: No Known Allergies (Unverified , 04/11/17) Objective Last 24 Hour Vital Signs Date Time Temp Pulse Resp B/P Pulse Ox O2 Delivery O2 Flow Rate FiO2 04/13/17 11:48 97.3 78 18 130/85 100 Room Air 04/13/17 09:10 83 04/13/17 09:05 77 04/13/17 09:00 68 04/13/17 08:36 98.1 74 18 117/77 100 Room Air 04/13/17 04:00 97.7 78 20 120/75 99 Room Air 04/13/17 04:00 69 04/13/17 01:00 74 88 87 04/13/17 00:00 98.4 74 20 123/71 98 Room Air 04/13/17 00:00 75 04/12/17 20:00 77 04/12/17 20:00 98.8 70 18 120/77 100 Room Air 04/12/17 16:00 70 04/12/17 16:00 97.4 70 18 117/74 99 Room Air Intake and Output 04/12/17 04/13/17 19:00 07:00 Intake Total 1830 ml 1592 ml Output Total 1200 ml 1000 ml Balance 630 ml 592 ml Intake Oral 730 ml 500 ml IV Total 1100 ml 842 ml Blood Product 250 ml Output Urine Total 1200 ml 1000 ml # Voids 4 General Appearance: WD/WN HEENT: normocephalic Respiratory/Chest: chest wall non-tender, normal breath sounds Cardiovascular: normal peripheral pulses, normal rate Abdomen: normal bowel sounds, soft, non tender Genitourinary: normal external genitalia Microbiology Date/Time Source Procedure Growth Status 04/11/17 18:20 Blood Blood Culture - Preliminary NO GROWTH AFTER 24 HOURS Resulted 04/11/17 18:00 Blood Blood Culture - Preliminary NO GROWTH AFTER 24 HOURS Resulted Laboratory Tests 04/12/17 16:30: White Blood Count 8.9, Red Blood Count 2.10L, Hemoglobin 7.3L, Hematocrit 21.1L , Mean Corpuscular Volume 101H, Mean Corpuscular Hemoglobin 34.9H, Mean Corpuscular Hemoglobin Concent 34.7, Red Cell Distribution Width 13.0, Platelet Count 187, Mean Platelet Volume 9.9, Neutrophils (%) (Auto) , Lymphocytes (%) ( Auto) , Monocytes (%) (Auto) , Eosinophils (%) (Auto) , Basophils (%) (Auto) , Differential Total Cells Counted 100, Neutrophils % (Manual) 61, Lymphocytes % ( Manual) 33, Monocytes % (Manual) 5, Eosinophils % (Manual) 0, Basophils % ( Manual) 0, Band Neutrophils 1, Nucleated Red Blood Cells 1, Platelet Estimate Adequate, Platelet Morphology Normal, Polychromasia 1+, Anisocytosis 1+, Spherocytes Occasional, Ovalocytes 1+, Reticulocyte Count 1.8, Hemoglobin A [ Pending], Hemoglobin A2 [Pending], Hemoglobin C [Pending], Hemoglobin F () [Pending], Hemoglobin S [Pending], Variant Hemoglobin [Pending], Hemoglobin Electrophoresis Interp [Pending], Hemoglobin Interpretation [Pending], Hemoglobin Solubility [Pending], Fibrinogen 179L, Iron Level 36L, Total Iron Binding Capacity 229L, Percent Iron Saturation 16, Unsaturated Iron Binding 193 , Ferritin 65, Lactate Dehydrogenase 227, Total Protein (PEP) [Pending], Albumin (PEP) [Pending], Globulin (PEP) [Pending], Albumin/Globulin Ratio [ Pending], Tfici-4-Ynycamkve [Pending], Taouo-2-Vnwntlulv [Pending], Beta Globulins [Pending], Beta Gamma Globulin [Pending], PEP Abnormal Protein Bands [ Pending], Protein Electrophoresis Interpret [Pending], Vitamin B12 Level 318, Folate [Pending], Hepatitis A IgM Antibody [Pending], Hepatitis B Surface Antigen [Pending], Hepatitis B Core IgM Antibody [Pending], Hepatitis C Antibody [Pending], HIV (1&2) Antibody Rapid Preliminary positiveH 04/13/17 04:52: White Blood Count 8.8, Red Blood Count 2.62L, Hemoglobin 9.0L, Hematocrit 27.2L , Mean Corpuscular Volume 104H, Mean Corpuscular Hemoglobin 34.3H, Mean Corpuscular Hemoglobin Concent 33.2, Red Cell Distribution Width 13.5, Platelet Count 198, Mean Platelet Volume 9.5, Neutrophils (%) (Auto) 58.2, Lymphocytes (% ) (Auto) 28.8, Monocytes (%) (Auto) 9.6, Eosinophils (%) (Auto) 2.4, Basophils ( %) (Auto) 1.0 04/13/17 06:55: Troponin I < 0.30 Current Medications Medications (Trade) Dose Ordered Sig/Ifeanyi Route PRN Reason Start Time Stop Time Status Last Admin Dose Admin Acetaminophen (Tylenol) 650 mg Q4H PRN ORAL T>100.5 04/11/17 18:45 05/11/17 18:44 Al Hydroxide/Mg Hydroxide (Mylanta II) 30 ml Q6H PRN ORAL dyspepsia 04/11/17 19:00 05/11/17 18:59 Dextrose STAT PRN IV Hypoglycemia 04/11/17 19:00 05/11/17 18:59 Dextrose/Sodium Chloride (D5ns) 1,000 ml @ 100 mls/hr Q10H IV 04/11/17 19:00 05/11/17 18:59 04/13/17 12:16 Efavirenz (Sustiva) 600 mg BEDTIME ORAL 04/12/17 21:00 05/12/17 20:59 04/12/17 21:14 Emtricitabine/ Tenofovir (Truvada 200/ 300mg) 1 tab QHS ORAL 04/12/17 21:00 05/12/17 20:59 04/12/17 21:14 Lorazepam (Ativan 2mg/ml 1ml) 0.5 mg Q4H PRN IV For Anxiety 04/11/17 19:00 04/18/17 18:59 Morphine Sulfate (Morphine Sulfate) 1 mg Q4H PRN IVP PAIN 4-10 04/11/17 18:45 04/18/17 18:44 04/13/17 02:19 Ondansetron HCl (Zofran) 4 mg Q6H PRN IVP Nausea & Vomiting 04/11/17 19:00 05/11/17 18:59 Polyethylene Glycol (Miralax) 17 gm HSPRN PRN ORAL Constipation 04/11/17 21:00 05/11/17 20:59 Zolpidem Tartrate (Ambien) 5 mg HSPRN PRN ORAL Insomnia 04/11/17 21:00 05/11/17 20:59 JOAQUIN JACKSON Apr 13, 2017 12:43
[2017-04-13] MEDS ORDERED: D5NS 1000ml IV ONE (15:29)
[2017-04-13] MEDS ORDERED: NS 275ml ONE (15:29)
--- NOTE | 2017-04-13 16:55 | Cardiology Report ---
APPROVED REPORT EKG Measurement Heart [id number] Normal sinus rhythm Possible Inferior infarct, age undetermined T wave abnormality, consider anterior ischemia Abnormal ECG
[2017-04-13 20:08] LABS: A/G RATIO 1.9 (0.7-1.7); ABNORMAL PROTEIN BAND 1 Not Observed g/dL (Not Observed); ALBUMIN 3.1 g/dL (2.9-4.4); ALPHA-1 GLOBULIN 0.1 g/dL (0.0-0.4); ALPHA-2 GLOBULIN 0.3 g/dL (0.4-1.0); BETA GLOBULIN 0.5 g/dL (0.7-1.3); GAMMA GLOBULIN 0.6 g/dL (0.4-1.8); GLOBULIN, TOTAL 1.6 g/dL (2.2-3.9); TOTAL PROTEIN 4.7 g/dL (6.0-8.5)
--- NOTE | 2017-04-13 21:53 | General Progress Note ---
Assessment/Plan Assessment/Plan ASSESSMENT AND RECOMMENDATION: 1. Anemia secondary to hemodilution. Hemoglobin and hematocrit have dropped approximately 3 points. ---> has received 1 unit PRBC, hgb better now 2. Anemia secondary to human immunodeficiency virus and acquired immunodeficiency syndrome. ---> have counseled patient to f/u as outpatient 3. Wrist fracture secondary to fall and trauma from window. 4. Human immunodeficiency virus and acquired immunodeficiency syndrome. 6. Laceration history 7. Implantable cardioverter defibrillator placement. 8. Acute kidney injury. 9. Macrocytosis likely secondary to human immunodeficiency virus and acquired immunodeficiency syndrome, ultrasound of the abdomen. 10. Positive cocaine use as well as marijuana use. 11. Polysubstance abuse. 12. I have ordered DIC panel. 13. Discussed with staff. 14. I appreciate consultation from Dr. Lolis Villar. Subjective Constitutional: Reports: no symptoms HEENT: Reports: no symptoms Cardiovascular: Reports: no symptoms Respiratory: Reports: no symptoms Gastrointestinal/Abdominal: Reports: no symptoms Genitourinary: Reports: no symptoms Neurologic/Psychiatric: Reports: no symptoms Endocrine: Reports: no symptoms Hematologic/Lymphatic: Reports: anemia Allergies: Coded Allergies: No Known Allergies (Unverified , 04/11/17) Subjective s/p blood transfusion, was dc home Objective Last 24 Hour Vital Signs Date Time Temp Pulse Resp B/P Pulse Ox O2 Delivery O2 Flow Rate FiO2 04/13/17 12:00 72 04/13/17 11:48 97.3 78 18 130/85 100 Room Air 04/13/17 09:10 83 04/13/17 09:05 77 04/13/17 09:00 68 04/13/17 08:36 98.1 74 18 117/77 100 Room Air 04/13/17 08:00 61 04/13/17 04:00 97.7 78 20 120/75 99 Room Air 04/13/17 04:00 69 04/13/17 01:00 74 88 87 04/13/17 00:00 98.4 74 20 123/71 98 Room Air 04/13/17 00:00 75 Intake and Output 04/12/17 04/13/17 19:00 07:00 Intake Total 1830 ml 1592 ml Output Total 1200 ml 1000 ml Balance 630 ml 592 ml Intake Oral 730 ml 500 ml IV Total 1100 ml 842 ml Blood Product 250 ml Output Urine Total 1200 ml 1000 ml # Voids 4 Laboratory Tests 04/13/17 04:52: White Blood Count 8.8, Red Blood Count 2.62L, Hemoglobin 9.0L, Hematocrit 27.2L , Mean Corpuscular Volume 104H, Mean Corpuscular Hemoglobin 34.3H, Mean Corpuscular Hemoglobin Concent 33.2, Red Cell Distribution Width 13.5, Platelet Count 198, Mean Platelet Volume 9.5, Neutrophils (%) (Auto) 58.2, Lymphocytes (% ) (Auto) 28.8, Monocytes (%) (Auto) 9.6, Eosinophils (%) (Auto) 2.4, Basophils ( %) (Auto) 1.0 04/13/17 06:55: Troponin I < 0.30 Height (Feet): 5 Height (Inches): 8.00 Weight (Pounds): 150 General Appearance: no apparent distress EENT: PERRL/EOMI Neck: non-tender Cardiovascular: normal rate Respiratory/Chest: chest wall non-tender Abdomen: normal bowel sounds Extremities: non-tender Edema: no edema noted Pedal (L), no edema noted Pedal (R) Neurologic: design manager II-XII grossly normal Suman Valentin Apr 13, 2017 21:53
[2017-04-14 12:15] LABS: HEMOGLOBIN A 97.6 % (94.0-98.0); HEMOGLOBIN A2 2.4 % (0.7-3.1)
--- NOTE | 2017-04-14 15:59 | Discharge Summary ---
Discharge Summary Hospital Course Date of Admission Apr 11, 2017 at 17:45 Date of Discharge Apr 13, 2017 at 15:30 Admitting Diagnosis hypotension HPI Tyler Kent is a 56 year old male who was admitted on Apr 11, 2017 at 17: 45 for Hypotension Hospital Course [id number] Discharge Discharge Disposition Patient was discharged to Home (01) Discharge Diagnoses: Alondra Saleh NP Apr 14, 2017 15:59
--- NOTE | 2017-04-14 17:48 | Cardiology Report ---
APPROVED REPORT EXAM: Two-dimensional and M-mode echocardiogram with Doppler and color Doppler. INDICATION Left ventricular function M-Mode DIMENSIONS IVSd0.9 (0.7-1.1cm)Left Atrium (MM)4.4 (1.6-4.0cm) LVDd6.7 (3.5-5.6cm)Aortic Root2.8 (2.0-3.7cm) PWd0.8 (0.7-1.1cm)Aortic Cusp Exc.2.0 (1.5-2.0cm) LVDs5.2 (2.5-4.0cm) PWs0.9 cm Mild left ventricular enlargement. Global left ventricular hypokinesis Left ventricular ejection fraction estimated to be 20-25%. No evidence of left ventricular hypertrophy. No evidence of pericardial fat or effusion. Right cardiac chamber sizes are within normal limits. Moderate left atrial enlargement by 2D. Focal aortic valve sclerosis with adequate cusp excursion Thickened mitral valve leaflets with normal excursion. Mitral annulus and aortic root calcification. Pulmonic valve not well visualized. Normal tricuspid valve structure. IVC is normal in size with physiologic collapse. Probable pacemaker wire present in the right side chambers. A color flow and spectral Doppler study was performed and revealed: No aortic regurgitation. Mild mitral regurgitation. Restrictive influw suggestive of significant diastolic function and increased LA pressure Mild tricuspid regurgitation. Tricuspid systolic velocities suggests peak right ventricular systolic pressure of 30 mmHg
--- NOTE | 2017-04-14 18:00 | Discharge Summary 2 SIG ---
DATE OF ADMISSION: 04/11/2017 DATE OF DISCHARGE: 04/13/2017 CONSULTANTS: 1. Suman Valentin M.D. 2. Ash Barth M.D. 3. Cliff Casper M.D. BRIEF HOSPITAL COURSE: The patient is a 56-year-old male with history of ICD and HIV who was brought in by ambulance for a laceration to the right wrist. The patient stated that he was cleaning his house, tripped over, and fell into his window. On evaluation at ED, he had a 6-cm linear laceration to the anterior right wrist with full active range of motion and sensation intact. Wound was cleaned and irrigated, and six sutures were placed. However, the patient became tachycardic and hypotensive and was given bolus of fluid. CBC showed leukocytosis and mild anemia. CMP showed acute kidney injury with elevated BUN and creatinine to 2.0. Urine drug screen was positive for cocaine and marijuana. EKG and chest x-ray did not show any acute findings. The patient was then admitted to telemetry for evaluation of hypotension, acute kidney injury, and laceration with a syncope/fall. Electrocardiogram showed sinus bradycardia at a rate of 57 with T-wave inversions in V4, V5 as well as V6. Echocardiogram showed evidence of cardiomyopathy with ejection fraction estimated between 35% to 40%. Global hypokinesis has been documented with posterior and inferior akinesis with no significant valvular regurgitation. Telemetry strips showed sinus rhythm, and was restarted on his HIV medication Atripla one tablet at bedtime. He had an episode of anemia. Hemoglobin and hematocrit dropped approximately three points. Anemia possibly due to hemodilution or secondary to HIV. DIC panel was done. He received one unit packed RBC blood transfusion. ICD was interrogated, and the patient was eventually discharged home. FINAL DIAGNOSES: 1. Acute kidney injury. 2. Hypotension, resolved. 3. Mechanical fall with laceration to the wrist, status post suturing. 4. Implantable cardioverter-defibrillator. 5. Human immunodeficiency virus. 6. Anemia of hemodilution. 7. Anemia secondary to human immunodeficiency virus. 8. Acute anemia requiring transfusion. 9. Non-syncopal fall. 10. Vasovagal syncope. 11. Cardiomyopathy. Lolis Villar M.D. I have been assigned to dictate discharge summary on this account and I was not involved in the patient's management. Alondra Saleh N.P. DR: SIGIFREDO JOB#: [id number] CC:
--- NOTE | 2017-04-15 12:49 | Diagnostic Imaging Report ---
APPROVED REPORT CPT Code: 02244 Present Symptoms Lower Extremity Pain: Bilateral BILATERAL: Imaging reveals a patent deep venous system bilaterally. There is no evidence of thrombus within the femoral, popliteal or tibial segments. The greater saphenous veins are also within normal limits. Doppler indicates normal spontaneous flow within these segments.
== END 2017-04-13 15:30 | disposition home or self-care (01) | DRG 952 ==
LOC: EDBD 13:21 → EMR 13:54 → 2E 17:45 → EDBEDREQ 18:17
PROC: 0JQG0ZZ Repair Right Lower Arm Subcutaneous Tissue and Fascia, Open Approach (ICD-10-PCS; principal; 2017-04-11)
PROC: 30233N1 Transfusion of Nonautologous Red Blood Cells into Peripheral Vein, Percutaneous Approach (ICD-10-PCS; 2017-04-12)
DX: N17.9 Acute kidney failure, unspecified (principal); I95.9 Hypotension, unspecified; I42.9 Cardiomyopathy, unspecified; R00.1 Bradycardia, unspecified; S61.511A Laceration without foreign body of right wrist, initial encounter; D63.8 Anemia in other chronic diseases classified elsewhere; E86.0 Dehydration; F14.90 Cocaine use, unspecified, uncomplicated; F12.90 Cannabis use, unspecified, uncomplicated; R55 Syncope and collapse; Z95.810 Presence of automatic (implantable) cardiac defibrillator; W13.4XXA Fall from, out of or through window, initial encounter; W01.110A Fall on same level from slipping, tripping and stumbling with subsequent striking against sharp glass, initial encounter; Y93.E9 Activity, other interior property and clothing maintenance; Y92.019 Unspecified place in single-family (private) house as the place of occurrence of the external cause; Y99.8 Other external cause status
CPT/HCPCS: 36415; 71010; 76775; 80053; 80061; 80300; 81001; 82270; 82550; 82553; 82607; 82728; 82746; 83020; 83540; 83550; 83605; 83615; 84133; 84165; 84300; 84443; 84484; 84550; 85007; 85025; 85044; 85060; 85384; 86689; 86703; 86705; 86709; 86803; 86850; 86900; 86901; 86920; 87040; 87340; 89050; 90471; 90715; 93005; 93306; 93970